=== PATIENT | female | born 1975 | race Caucasian/White ===

== ENCOUNTER 2023-03-20 22:55 | Emergency (ER) | payer OTHER, SELFPAY ==
[2023-03-20 23:06] VITALS: BP 146/78; PULSE 84; RESP 18; TEMP 36.4; O2SAT 96
--- NOTE | 2023-03-20 23:09 | ED.GENADULT ---
HPI - General Adult General Chief complaint: Recheck/Abnormal Lab/Rx Stated complaint: abnomal lab Source: patient Mode of arrival: ambulatory Limitations: no limitations History of Present Illness HPI narrative: 47-year-old female with history, seasonal allergies respirator Singulair presented to her primary physician yesterday and had routine blood work. She was called by her physician for abnormal blood test which according to the patient is elevated potassium. The patient does not have any complaints. No chest pain or shortness of breath. No nausea / vomiting /abdominal pain / diarrhea. No muscle cramps. The patient does not have any history of renal insufficiency. She makes good amounts of urine. MD complaint: No complaints Related Data Home Medications Medication Instructions Recorded Confirmed buspirone 10 mg tablet 10 mg PO DAILY 03/20/23 03/20/23 cetirizine 10 mg tablet (Zyrtec) 10 mg PO DAILY PRN seasonal 03/20/23 03/20/23 allergies montelukast 10 mg tablet 10 mg PO DAILY 03/20/23 03/20/23 (Singulair) norethindrone 1 mg-ethinyl 1 tablet PO DAILY 03/20/23 03/20/23 estradiol 20 mcg (24)-iron 75 mg (4) tablet (Blisovi 24 Fe) Allergies Allergy/AdvReac Type Severity Reaction Status Date / Time No Known Drug Allergies Allergy Unknown Unknown Verified 03/20/23 23:17 Review of Systems Review of Systems: All systems reviewed & are unremarkable except as noted in HPI and below Constitutional: Constitutional: Reports as per HPI and Reports no additional constitutional complaints Eyes: Eyes: Reports as per HPI and Reports no additional eye complaints ENT: Reports system reviewed and no additional complaints, except as documented Cardiovascular: Cardiovascular: Reports as per HPI and Reports no additional cardiovascular complaints Respiratory: Respiratory: Reports as per HPI and Reports no additional respiratory complaints Gastrointestinal: Gastrointestinal: Reports as per HPI and Reports no additional gastrointestinal complaints Genitourinary: Genitourinary: Reports no additional female genitourinary complaints and Reports as per HPI Musculoskeletal: Musculoskeletal: Reports no additional musculoskeletal complaints and Reports as per HPI Integumentary/Breasts: Skin/Breast: Reports system reviewed and no additional complaints, except as docu and Reports as per HPI Neurologic: Reports system reviewed and no additional complaints, except as documented and Reports as per HPI Psychiatric: Psychiatric: Reports no additional psychiatric complaints and Reports as per HPI Endocrine: Endocrine: Reports no additional endocrine complaints and Reports as per HPI Hematologic/Lymphatic: Hematologic/Lymphatic: Reports no additional hematologic/lymphatic complaints and Reports as per HPI Allergic/Immunologic: Allergic/Immunologic: Reports no additional allergic/immunologic complaints and Reports as per HPI [facility] Past Medical History Medical History (Updated 03/20/23 @ 23:53 by Nelson Craft MD) Anxiety Seasonal allergies Exam Const: General: healthy appearing and no acute distress Nutritional Appearance: well nourished Orientation/consciousness: patient oriented x3 Limitations: no limitations HENMT: Head: normal to inspection Ears: external ears normal Face/Nose/Sinus: Normal external nose present Face and sinus: normal facial exam Mouth: Yes Normal oral and palatal mucosa present Teeth and gingiva: dentition normal Eyes: Conjunctivae: conjunctivae normal Pupils: Equal, round and reactive pupils present EOM: EOMs intact bilaterally Direct Ophthalmoscopy: no photophobia Neck: Neck: normal visual inspection, no lymphadenopathy and no meningeal signs Chest: Chest palpation & inspection: normal inspection of the chest Resp: Effort & Inspection: normal respiratory effort Auscultation: clear to auscultation bilaterally Cardio: Rate: regular rate Rhythm: regular rhythm GI: GI Pa
[2023-03-20 23:27] LABS: Basophils Absolute Auto 0.06 K/mm3 (0.00-0.10); Basophils Percent Auto 0.4 % (0.0-1.0); Eosinophils Absolute Auto 0.11 K/mm3 (0.02-0.50); Eosinophils Percent Auto 0.7 % (1.0-6.0); Hematocrit 37.7 % (35.0-49.0); Hemoglobin 12.5 g/dL (12.0-15.0); Immature Granulocyte Absolute 0.06 K/mm3 (0.00-0.00); Immature Granulocyte Percent A 0.4 % (0.0-0.0); Lymphocytes Absolute Auto 3.77 K/mm3 (1.10-4.50); Lymphocytes Percent Auto 25.3 % (18.0-42.0); Mean Corpuscular HGB Conc 33.2 g/dL (32.0-36.0); Mean Corpuscular Hemoglobin 29.2 pg (27.0-31.0); Mean Corpuscular Volume 88.1 fL (78.0-102.0); Mean Platelet Volume 9.1 fl (9.2-11.8); Monocytes Absolute Auto 1.04 K/mm3 (0.10-0.90); Neutrophils Absolute Auto 9.9 K/mm3 (1.7-7.2); Neutrophils Percent Auto 66.2 % (50.0-70.0); Platelet Count Result 413 K/mm3 (150-420); Red Blood Count 4.28 M/mm3 (4.20-5.40); White Blood Count 14.9 K/mm3 (4.8-10.8)
[2023-03-20 23:43] LABS: Alanine Aminotransferase 18 U/L (14-59); Albumin Level 3.2 g/dL (3.4-5.0); Alkaline Phosphatase 61 U/L (46-116); Anion Gap 8 mmol/L (8-16); Aspartate Amino Transferase < 10 U/L (15-37); Bilirubin,Total 0.2 mg/dL (0.00-1.00); Blood Urea Nitrogen 16 mg/dL (7-18); Calcium 8.5 mg/dL (8.5-10.1); Carbon Dioxide 28 mmol/L (21-32); Chloride 104 mmol/L (98-108); Estimated CRCL calculation 95 ml/min; Estimated Glomerular Filt Rate > 60; Glucose 121 mg/dL (70-99); Magnesium 2.2 mg/dL (1.8-2.4); Osmolality Calculated 292 mOsm/kg (285-295); Sodium 140 mmol/L (136-145); Total Protein 7.1 g/dL (6.4-8.2)
== END 2023-03-21 00:06 | disposition home or self-care (01) ==
PROVIDERS: Emergency Provider Internal Medicine Critical Care Medicine; PCP Physician Assistant
DX: F41.9 Anxiety disorder, unspecified (principal); Z79.899 Other long term (current) drug therapy
CPT/HCPCS: 36415; 80053; 83735; 85025; 99283